=== PATIENT | male | born 1980 | race African-American/Black ===

== ENCOUNTER 2020-12-10 16:22 | Emergency (ER) | payer OTHER ==
[~2020-12-10] VITALS: Ht 193 cm; Wt 90.7 kg
[2020-12-10 16:29] VITALS: BP 146/83
[2020-12-10] MEDS ORDERED: HYDROCODONE/APAP 5/325MG TABLET ONE (16:58)
[2020-12-10] MEDS ORDERED: HYDROCODONE/APAP 5/325MG TABLET PO ONE (17:00)
[2020-12-10] MEDS ORDERED: LIDOCAINE 1% INJ 50 ML MDV IJ ONE (17:21)
[2020-12-10] MEDS ORDERED: IBUP-1955 PO (17:41)
[2020-12-10] MEDS ORDERED: BACI30OI9 TP (17:41)
== END 2020-12-10 17:52 | disposition home or self-care (01) ==
LOC: ER 16:37
DX: S60.151A Contusion of right little finger with damage to nail, initial encounter (principal); Z79.899 Other long term (current) drug therapy; X58.XXXA Exposure to other specified factors, initial encounter; Y93.89 Activity, other specified; Y92.89 Other specified places as the place of occurrence of the external cause; Y99.8 Other external cause status
CPT/HCPCS: 11740; 73140; 99284; A6403; J3490

== ENCOUNTER 2020-12-25 17:48 | Emergency (ER) | payer OTHER ==
[~2020-12-25] VITALS: Ht 193 cm; Wt 97.5 kg
[~2020-12-25 17:48] MED LIST: BACI30OI9 TP; IBUP-1955 PO
[2020-12-25 18:07] VITALS: BP 123/82
[2020-12-25] MEDS ORDERED: SULF1TAB48 PO (18:17)
[2020-12-25] MEDS ORDERED: CEPH500C2 PO (18:17)
[2020-12-25] MEDS ORDERED: TRAM50TA2 PO (18:17)
== END 2020-12-25 18:31 | disposition home or self-care (01) ==
LOC: ER 17:59
DX: S60.151A Contusion of right little finger with damage to nail, initial encounter (principal); L03.011 Cellulitis of right finger; Z79.899 Other long term (current) drug therapy; W22.8XXA Striking against or struck by other objects, initial encounter; Y93.89 Activity, other specified; Y92.89 Other specified places as the place of occurrence of the external cause; Y99.8 Other external cause status